=== PATIENT | male | born 1960 | race American Indian/Alaskan Native ===

== ENCOUNTER 2017-03-07 15:19 | Emergency (ER) | payer OTHER ==
[2017-03-07] MEDS ORDERED: MOTRIN PO ONE (17:19)
[2017-03-07] MEDS ORDERED: TYLENOL PO ONE (17:19)
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
[2017-03-07 19:20] VITALS: BP 133/82
== END 2017-03-07 19:21 | disposition home or self-care (01) ==
LOC: ED 15:19
DX: M25.551 Pain in right hip (principal); M54.2 Cervicalgia; M25.561 Pain in right knee; G89.29 Other chronic pain; Z88.0 Allergy status to penicillin; V43.52XA Car driver injured in collision with other type car in traffic accident, initial encounter; Y93.89 Activity, other specified; Y92.89 Other specified places as the place of occurrence of the external cause; Y99.8 Other external cause status
CPT/HCPCS: 71046; 72170; 99283

== ENCOUNTER 2021-02-16 12:42 | Emergency (ER) | payer SELFPAY | END 2021-02-16 14:10 | disposition home or self-care (01) | LOC: ED 12:42 | DX: Z53.21 Procedure and treatment not carried out due to patient leaving prior to being seen by health care provider (principal) ==

== ENCOUNTER 2021-10-03 11:51 | Outpatient (CLI) | payer OTHER ==
--- NOTE | 2021-10-03 15:28 | XRay Report ---
Bilateral hips-4 total views INDICATION: M16.11 UNILATERAL PROMARY OSTEOARTHRITIS, RIGHT HIP, PAIN. COMPARISON: None available. IMPRESSION: No acute osseous abnormality. Normal alignment. Severe right hip DJD with very mild lef t hip DJD. Soft tissues are unremarkable. Signer Name: Micheal Bond MD Signed: 10/03/2021 3:24 PM Workstation Name: [id number]
== END 2021-10-03 11:52 | disposition home or self-care (01) ==
LOC: XRAY 11:51
PROVIDERS: ATTEND Orthopaedic Surgery
DX: M16.0 Bilateral primary osteoarthritis of hip (principal)
CPT/HCPCS: 73521